=== PATIENT | male | born 1970 ===

== ENCOUNTER → 2022-03-30 | Outpatient (CLI) | payer OTHER ==
[~2022-03-30] MED LIST: ACET-784 PO; ACET650S24 PR; DOCU-385 PO; FINA-27 PO; FLUO20CA36 PO; GABA-1216 PO; HYDR-4808 PO; HYDR50CA7 PO; LEVAHFA IH; LEVE500T20 PO; LIDO700A30 TP; MAGN-169 PO; MIRT-149 PO; NALT50TA6 PO; PANT-31 PO; PROP10TA73 PO; TAMS-13 PO
== END | disposition home or self-care (01) ==
LOC: RADPV 09:40
PROVIDERS: ATTEND Internal Medicine
DX: R07.9 Chest pain, unspecified (principal); R06.09 Other forms of dyspnea
CPT/HCPCS: 93306

== ENCOUNTER → 2022-06-02 | Outpatient (CLI) | payer OTHER ==
[2022-06-02 15:17] VITALS: BP 137/88
== END | disposition home or self-care (01) ==
LOC: SRCNTR 15:13
PROVIDERS: ATTEND Internal Medicine
DX: Z09 Encounter for follow-up examination after completed treatment for conditions other than malignant neoplasm (principal); R07.89 Other chest pain; R06.09 Other forms of dyspnea; I10 Essential (primary) hypertension; R56.9 Unspecified convulsions; M54.50 Low back pain, unspecified; F41.9 Anxiety disorder, unspecified; F32.A Depression, unspecified
CPT/HCPCS: G0463; Z7500